=== PATIENT | female | born 1990 | race Caucasian/White ===

== ENCOUNTER 2021-01-05 18:52 | Emergency (ER) | payer OTHER ==
[~2021-01-05 18:52] MED LIST: BIRTH CONTROL PILL PO; CYCLOBENZAPRINE10 MG PO; NORCO 7.5-3251 EACH PO; ZOFRAN ODT 4 MG4 MG SL
[2021-01-05 20:58] LABS: HEMOGLOBIN 13.7 gm/dl (12.3-15.3); RED BLOOD COUNT 4.25 M/UL (4.00-5.10); WHITE BLOOD COUNT 10.6 K/UL (4.5-11.0)
[2021-01-05 21:11] LABS: BUN/CREATININE RATIO 9 (0-10)
== END 2021-01-06 | disposition home or self-care (01) ==
LOC: ER1 18:52
PROVIDERS: Physician Assistant
DX: N76.0 Acute vaginitis (principal); F17.200 Nicotine dependence, unspecified, uncomplicated; Z88.8 Allergy status to other drugs, medicaments and biological substances
CPT/HCPCS: 80053; 81001; 83605; 85025; 87040; 96374; 96375; 99283; J2405